=== PATIENT | female | born 1955 | race Two or more races ===

== ENCOUNTER 2017-08-30 15:16 | Inpatient (IN) | payer OTHER ==
[2017-08-30] MEDS ORDERED: PENDING SANTYL ORDER FOR WOUND CARE XX (16:00)
[2017-08-30] MEDS ORDERED: ACETAMINOPHEN 325 MG TAB PO (16:30)
[2017-08-30 16:58] LABS: ADD UMIC YES; UR ASCORBIC ACID NEGATIVE (NEGATIVE); UR BACTERIA FEW /HPF (NONE SEEN); UR BILIRUBIN (Dip) NEGATIVE (NEGATIVE); UR BLOOD (Dip) 2+ mg/dL (NEGATIVE); UR CLARITY CLEAR (CLEAR); UR COLOR YELLOW (YELLOW); UR GLUCOSE (Dip) NEGATIVE (NEGATIVE); UR KETONES (Dip) NEGATIVE (NEGATIVE); UR LEUKOCYTE ESTERASE (Dip) 1+ Leu/ul (NEGATIVE); UR NITRITE (Dip) POSITIVE (NEGATIVE); UR RBC 8 /HPF (0-5); UR SPECIFIC GRAVITY (Dip) 1.008 (1.003-1.030); UR SQUAMOUS EPITHELIAL CELL FEW /HPF (FEW); UR TOTAL PROTEIN (Dip) 1+ mg/dl (NEGATIVE); UR UROBILINOGEN (Dip) NEGATIVE (NEGATIVE); UR WBC 3 /HPF (0-5)
[2017-08-30] MEDS: HYDROCODONE/APAP (5/325) TAB PO (18:54)
[2017-08-30] MEDS: DOCUSATE SODIUM 100 MG CAP PO (20:41)
[2017-08-30] MEDS: AMLODIPINE 5 MG TAB PO ×2 (20:42→20:48)
[2017-08-30] MEDS: ZOLPIDEM 5 MG TAB PO (21:14)
[2017-08-31] MEDS: PANTOPRAZOLE (EC) 40 MG TAB PO (05:29)
[2017-08-31] MEDS: HYDROCODONE/APAP (5/325) TAB PO ×5 (08:45→21:27)
[2017-08-31] MEDS: DOCUSATE SODIUM 100 MG CAP PO ×2 (08:48→21:00)
[2017-08-31] MEDS: SENNA TAB PO (08:48)
[2017-08-31] MEDS: MAGNESIUM HYDROXIDE 30ML CUP PO (08:48)
[2017-08-31] MEDS: VALSARTAN 80 MG TAB PO (09:00)
[2017-08-31] MEDS: CHOLECALCIFEROL 1,000 UNIT TAB PO (09:00)
[2017-08-31 09:07] LABS: ADD MAN DIFF? NO
[2017-08-31 09:14] LABS: BASOPHILS % 0.2 % (0.0-2.0); EOSINOPHILS # 0.2 10^3/ul (0.0-0.5); EOSINOPHILS % 2.3 % (0.0-7.0); HEMATOCRIT 26.8 % (37.0-47.0); HEMOGLOBIN 8.4 g/dl (12.0-16.0); LYMPHOCYTES # 1.1 10^3/ul (0.8-2.9); LYMPHOCYTES % 12.7 % (15.0-51.0); MEAN CORPUSCULAR HEMOGLOBIN 27.7 pg (29.0-33.0); MEAN CORPUSCULAR HGB CONC 31.3 g/dl (32.0-37.0); MEAN CORPUSCULAR VOLUME 88.4 fl (82.0-101.0); MEAN PLATELET VOLUME 11.1 fl (7.4-10.4); MONOCYTE # 0.6 10^3/ul (0.3-0.9); MONOCYTES % 7.3 % (0.0-11.0); NEUTROPHIL # 6.4 10^3/ul (1.6-7.5); NUCLEATED RED BLOOD CELLS% 0.2 /100WBC (0.0-0.0); PLATELET COUNT 198 10^3/UL (140-415); RED BLOOD COUNT 3.03 10^6/ul (4.20-5.40); RED CELL DISTRIBUTION WIDTH 15.8 % (11.5-14.5)
[2017-08-31 09:14] LABS: WHITE BLOOD COUNT 8.3 10^3/ul (4.8-10.8)
[2017-08-31 09:43] LABS: ALANINE AMINOTRANSFERASE 26 IU/L (13-69); ALBUMIN 2.8 g/dl (3.3-4.9); ALBUMIN/GLOBULIN RATIO 0.96; ALKALINE PHOSPHATASE 77 IU/L (42-121); ANION GAP 8 (8-16); ASPARTATE AMINO TRANSFERASE 14 IU/L (15-46); BILIRUBIN,INDIRECT 0.5 mg/dl (0-1.1); BILIRUBIN,TOTAL 0.5 mg/dl (0.2-1.3); BLOOD UREA NITROGEN 9 mg/dl (7-20); CALCIUM 8.9 mg/dl (8.4-10.2); CARBON DIOXIDE 26 mmol/L (21-31); CHLORIDE 106 mmol/L (97-110); CREATININE 0.57 mg/dl (0.44-1.00); GLUCOSE 144 mg/dl (70-220); POTASSIUM 3.9 mmol/L (3.5-5.1); SODIUM 136 mmol/L (135-144); TOTAL PROTEIN 5.7 g/dl (6.1-8.1)
[2017-08-31] MEDS: AMLODIPINE 5 MG TAB PO (21:00)
[2017-08-31] MEDS: KETOCONAZOLE 2% 15 GM CR TOP (21:00)
[2017-08-31] MEDS: ZOLPIDEM 5 MG TAB PO (21:27)
[2017-08-31] MEDS: TRIAMCINOLONE ACET 0.5% 15 GM CR TOP (21:29)
[2017-09-01] MEDS: LACTULOSE 30ML CUP PO (05:38)
[2017-09-01] MEDS: PANTOPRAZOLE (EC) 40 MG TAB PO (05:38)
[2017-09-01] MEDS: HYDROCODONE/APAP (5/325) TAB PO ×5 (05:50→21:58)
[2017-09-01] MEDS: CHOLECALCIFEROL 1,000 UNIT TAB PO (08:59)
[2017-09-01] MEDS: DOCUSATE SODIUM 100 MG CAP PO ×2 (08:59→21:00)
[2017-09-01] MEDS: KETOCONAZOLE 2% 15 GM CR TOP ×2 (08:59→21:57)
[2017-09-01] MEDS: TRIAMCINOLONE ACET 0.5% 15 GM CR TOP ×2 (08:59→21:57)
[2017-09-01] MEDS: SENNA TAB PO (08:59)
[2017-09-01] MEDS: VALSARTAN 80 MG TAB PO (09:00)
[2017-09-01 10:30] LABS: IRON 27 ug/dl (35-150)
[2017-09-01 10:34] LABS: LACTATE DEHYDROGENASE 457 IU/L (313-618)
[2017-09-01 10:34] LABS: URIC ACID 5.1 mg/dl (3.1-7.9)
[2017-09-01 10:42] LABS: % IRON SATURATION 8 % SAT (22-52); TOTAL IRON BINDING CAPACITY 337 ug/dl (241-421)
[2017-09-01 11:57] LABS: ERYTHROCYTE SEDIMENTATION RATE 80 mm/Hr (0-30)
[2017-09-01] MEDS: BISACODYL 10 MG SUPP PR (13:33)
[2017-09-01 13:51] LABS: CARCINOEMBRYONIC ANTIGEN 1.3 ng/ml (0.0-5.0)
[2017-09-01 15:15] LABS: OCCULT BLOOD STOOL NEGATIVE (NEGATIVE)
[2017-09-01 15:33] LABS: FOLATE > 20.0 ng/ml (2.8-20.0)
[2017-09-01] MEDS: AMLODIPINE 5 MG TAB PO (21:00)
[2017-09-01] MEDS ORDERED: TRIMETHOPRIM/SULFAMETHOX (DS) TAB GTB (21:00)
[2017-09-01] MEDS: TRIMETHOPRIM/SULFAMETHOX (PO SYG) GTB (21:56)
[2017-09-01] MEDS: SOD FERRIC GLUC COMPLX 125 MG in SOD CHLORIDE 0.9% 100 ML IVPB (22:43)
[2017-09-02] MEDS: PANTOPRAZOLE (EC) 40 MG TAB PO (05:52)
[2017-09-02] MEDS: HYDROCODONE/APAP (5/325) TAB PO ×3 (05:52→16:05)
[2017-09-02 06:34] LABS: ADD MAN DIFF? NO
[2017-09-02 06:43] LABS: WHITE BLOOD COUNT 10.9 10^3/ul (4.8-10.8)
[2017-09-02 06:43] LABS: BASOPHILS % 0.2 % (0.0-2.0); EOSINOPHILS # 0.3 10^3/ul (0.0-0.5); EOSINOPHILS % 2.8 % (0.0-7.0); HEMATOCRIT 27.6 % (37.0-47.0); HEMOGLOBIN 8.6 g/dl (12.0-16.0); LYMPHOCYTES # 1.6 10^3/ul (0.8-2.9); LYMPHOCYTES % 14.7 % (15.0-51.0); MEAN CORPUSCULAR HEMOGLOBIN 27.5 pg (29.0-33.0); MEAN CORPUSCULAR HGB CONC 31.2 g/dl (32.0-37.0); MEAN CORPUSCULAR VOLUME 88.2 fl (82.0-101.0); MEAN PLATELET VOLUME 10.5 fl (7.4-10.4); MONOCYTE # 0.6 10^3/ul (0.3-0.9); MONOCYTES % 5.9 % (0.0-11.0); NEUTROPHIL # 8.3 10^3/ul (1.6-7.5); NEUTROPHILS % 75.8 % (39.0-77.0); NUCLEATED RED BLOOD CELLS% 0.2 /100WBC (0.0-0.0); PLATELET COUNT 263 10^3/UL (140-415); RED BLOOD COUNT 3.13 10^6/ul (4.20-5.40); RED CELL DISTRIBUTION WIDTH 16.2 % (11.5-14.5)
[2017-09-02] MEDS: VALSARTAN 80 MG TAB PO (09:00)
[2017-09-02] MEDS: TRIMETHOPRIM/SULFAMETHOX (PO SYG) GTB ×2 (09:56→20:27)
[2017-09-02] MEDS: DOCUSATE SODIUM 100 MG CAP PO ×2 (09:56→20:27)
[2017-09-02] MEDS: SENNA TAB PO (09:56)
[2017-09-02] MEDS: TRIAMCINOLONE ACET 0.5% 15 GM CR TOP ×2 (09:58→20:28)
[2017-09-02] MEDS: KETOCONAZOLE 2% 15 GM CR TOP ×2 (09:58→20:27)
[2017-09-02] MEDS: CHOLECALCIFEROL 1,000 UNIT TAB PO (09:58)
[2017-09-02] MEDS: SOD FERRIC GLUC COMPLX 125 MG in SOD CHLORIDE 0.9% 100 ML IVPB (17:34)
[2017-09-02] MEDS: AMLODIPINE 5 MG TAB PO (20:27)
[2017-09-03] MEDS: PANTOPRAZOLE (EC) 40 MG TAB PO (06:05)
[2017-09-03] MEDS: HYDROCODONE/APAP (5/325) TAB PO ×2 (06:45→09:57)
[2017-09-03] MEDS: VALSARTAN 80 MG TAB PO (08:44)
[2017-09-03] MEDS: TRIMETHOPRIM/SULFAMETHOX (PO SYG) GTB ×2 (08:49→20:33)
[2017-09-03] MEDS: CHOLECALCIFEROL 1,000 UNIT TAB PO (08:49)
[2017-09-03] MEDS: DOCUSATE SODIUM 100 MG CAP PO ×2 (08:49→20:34)
[2017-09-03] MEDS: SENNA TAB PO (08:49)
[2017-09-03] MEDS: TRIAMCINOLONE ACET 0.5% 15 GM CR TOP ×2 (08:50→20:35)
[2017-09-03] MEDS: KETOCONAZOLE 2% 15 GM CR TOP ×2 (08:50→20:35)
[2017-09-03 15:16] LABS: PROTEIN, TOTAL 5.5 g/dL (6.1-8.1)
[2017-09-03] MEDS: SOD FERRIC GLUC COMPLX 125 MG in SOD CHLORIDE 0.9% 100 ML IVPB (16:35)
[2017-09-03 16:46] LABS: HAPTOGLOBIN 408 mg/dL (43-212)
[2017-09-03 17:31] LABS: ALBUMIN 2.7 g/dL (3.8-4.8); ALPHA-1-GLOBULINS 0.6 g/dL (0.2-0.3); ALPHA-2-GLOBULINS 0.9 g/dL (0.5-0.9); BETA 2 GLOBULINS 0.3 g/dL (0.2-0.5); BETA GLOBULINS 0.5 g/dL (0.4-0.6); GAMMA GLOBULINS 0.7 g/dL (0.8-1.7)
[2017-09-03] MEDS: AMLODIPINE 5 MG TAB PO (20:34)
[2017-09-04] MEDS: PANTOPRAZOLE (EC) 40 MG TAB PO (05:38)
[2017-09-04] MEDS: TRIMETHOPRIM/SULFAMETHOX (PO SYG) GTB ×2 (07:57→20:12)
[2017-09-04] MEDS: SENNA TAB PO (07:57)
[2017-09-04] MEDS: CHOLECALCIFEROL 1,000 UNIT TAB PO (07:58)
[2017-09-04] MEDS: HYDROCODONE/APAP (10/325) TAB PO (07:58)
[2017-09-04] MEDS: DOCUSATE SODIUM 100 MG CAP PO ×2 (07:58→20:10)
[2017-09-04] MEDS: TRIAMCINOLONE ACET 0.5% 15 GM CR TOP ×2 (08:03→20:14)
[2017-09-04] MEDS: VALSARTAN 80 MG TAB PO (08:03)
[2017-09-04] MEDS: KETOCONAZOLE 2% 15 GM CR TOP ×2 (08:04→20:13)
[2017-09-04] MEDS ORDERED: HYDROCODONE/APAP (5/325) TAB PO (09:00)
[2017-09-04] MEDS: SOD FERRIC GLUC COMPLX 125 MG in SOD CHLORIDE 0.9% 100 ML IVPB (17:07)
[2017-09-04] MEDS: NEOMYC/POLYMYX/BACIT 30 GM OINT TOP (20:12)
[2017-09-04] MEDS: AMLODIPINE 5 MG TAB PO (20:15)
[2017-09-05] MEDS: PANTOPRAZOLE (EC) 40 MG TAB PO (06:10)
[2017-09-05] MEDS: HYDROCODONE/APAP (10/325) TAB PO (07:50)
[2017-09-05] MEDS: SENNA TAB PO (09:40)
[2017-09-05] MEDS: TRIMETHOPRIM/SULFAMETHOX (PO SYG) GTB ×2 (09:40→20:22)
[2017-09-05] MEDS: CHOLECALCIFEROL 1,000 UNIT TAB PO (09:40)
[2017-09-05] MEDS: NEOMYC/POLYMYX/BACIT 30 GM OINT TOP ×2 (09:40→20:23)
[2017-09-05] MEDS: VALSARTAN 80 MG TAB PO (09:41)
[2017-09-05] MEDS: DOCUSATE SODIUM 100 MG CAP PO ×2 (09:41→20:22)
[2017-09-05] MEDS: KETOCONAZOLE 2% 15 GM CR TOP (09:44)
[2017-09-05] MEDS: TRIAMCINOLONE ACET 0.5% 15 GM CR TOP (09:44)
[2017-09-05] MEDS ORDERED: KETOCONAZOLE 2% 15 GM CR TOP (15:00)
[2017-09-05] MEDS: SOD FERRIC GLUC COMPLX 125 MG in SOD CHLORIDE 0.9% 100 ML IVPB (17:05)
[2017-09-05] MEDS: AMLODIPINE 5 MG TAB PO (20:23)
[2017-09-06] MEDS: PANTOPRAZOLE (EC) 40 MG TAB PO ×2 (05:42→05:43)
[2017-09-06] MEDS: HYDROCODONE/APAP (10/325) TAB PO ×3 (08:06→18:10)
[2017-09-06] MEDS: DOCUSATE SODIUM 100 MG CAP PO ×2 (09:03→20:53)
[2017-09-06] MEDS: SENNA TAB PO (09:03)
[2017-09-06] MEDS: VALSARTAN 80 MG TAB PO (09:03)
[2017-09-06] MEDS: CHOLECALCIFEROL 1,000 UNIT TAB PO (09:04)
[2017-09-06] MEDS: TRIMETHOPRIM/SULFAMETHOX (PO SYG) GTB ×2 (09:04→20:53)
[2017-09-06] MEDS: NEOMYC/POLYMYX/BACIT 30 GM OINT TOP ×2 (09:04→20:53)
[2017-09-06] MEDS: SOD FERRIC GLUC COMPLX 125 MG in SOD CHLORIDE 0.9% 100 ML IVPB (15:26)
[2017-09-06] MEDS: AMLODIPINE 5 MG TAB PO (20:51)
[2017-09-07] MEDS: PANTOPRAZOLE (EC) 40 MG TAB PO (06:25)
[2017-09-07] MEDS: HYDROCODONE/APAP (10/325) TAB PO ×2 (06:59→13:40)
[2017-09-07 07:20] LABS: CREATININE 0.78 mg/dl (0.44-1.00)
[2017-09-07 07:20] LABS: BLOOD UREA NITROGEN 11 mg/dl (7-20)
[2017-09-07] MEDS: TRIMETHOPRIM/SULFAMETHOX (PO SYG) GTB ×2 (09:09→21:08)
[2017-09-07] MEDS: DOCUSATE SODIUM 100 MG CAP PO ×2 (09:09→21:08)
[2017-09-07] MEDS: CHOLECALCIFEROL 1,000 UNIT TAB PO (09:10)
[2017-09-07] MEDS: VALSARTAN 80 MG TAB PO (09:10)
[2017-09-07] MEDS: SENNA TAB PO (09:10)
[2017-09-07] MEDS: NEOMYC/POLYMYX/BACIT 30 GM OINT TOP ×2 (09:11→21:10)
[2017-09-07] MEDS: SOD FERRIC GLUC COMPLX 125 MG in SOD CHLORIDE 0.9% 100 ML IVPB (16:55)
[2017-09-07] MEDS: AMLODIPINE 5 MG TAB PO (21:00)
[2017-09-08] MEDS: PANTOPRAZOLE (EC) 40 MG TAB PO (06:35)
[2017-09-08] MEDS: HYDROCODONE/APAP (10/325) TAB PO ×2 (06:36→20:40)
[2017-09-08] MEDS: TRIMETHOPRIM/SULFAMETHOX (PO SYG) GTB (10:08)
[2017-09-08] MEDS: SENNA TAB PO (10:08)
[2017-09-08] MEDS: VALSARTAN 80 MG TAB PO (10:09)
[2017-09-08] MEDS: CHOLECALCIFEROL 1,000 UNIT TAB PO (10:09)
[2017-09-08] MEDS: DOCUSATE SODIUM 100 MG CAP PO ×2 (10:09→20:44)
[2017-09-08] MEDS: NEOMYC/POLYMYX/BACIT 30 GM OINT TOP ×2 (10:10→20:44)
[2017-09-08] MEDS: SOD FERRIC GLUC COMPLX 125 MG in SOD CHLORIDE 0.9% 100 ML IVPB (17:00)
[2017-09-08] MEDS: AMLODIPINE 5 MG TAB PO (20:44)
[2017-09-09] MEDS: PANTOPRAZOLE (EC) 40 MG TAB PO (06:22)
[2017-09-09] MEDS: NEOMYC/POLYMYX/BACIT 30 GM OINT TOP ×2 (09:21→21:00)
[2017-09-09] MEDS: CHOLECALCIFEROL 1,000 UNIT TAB PO (09:21)
[2017-09-09] MEDS: VALSARTAN 80 MG TAB PO (09:22)
[2017-09-09] MEDS: DOCUSATE SODIUM 100 MG CAP PO ×2 (09:23→21:00)
[2017-09-09] MEDS: SENNA TAB PO (09:23)
[2017-09-09] MEDS: HYDROCODONE/APAP (10/325) TAB PO ×2 (09:36→17:16)
[2017-09-09] MEDS: HYDROCODONE/APAP (5/325) TAB PO (11:23)
[2017-09-09] MEDS: AMLODIPINE 5 MG TAB PO (21:00)
[2017-09-10] MEDS: PANTOPRAZOLE (EC) 40 MG TAB PO (06:13)
[2017-09-10] MEDS: HYDROCODONE/APAP (10/325) TAB PO (06:14)
[2017-09-10] MEDS: HYDROCODONE/APAP (5/325) TAB PO ×2 (08:37→21:00)
[2017-09-10] MEDS: LOSARTAN 25 MG TAB PO (09:00)
[2017-09-10] MEDS: CHOLECALCIFEROL 1,000 UNIT TAB PO (09:56)
[2017-09-10] MEDS: DOCUSATE SODIUM 100 MG CAP PO ×2 (09:56→20:56)
[2017-09-10] MEDS: NEOMYC/POLYMYX/BACIT 30 GM OINT TOP ×2 (09:57→20:56)
[2017-09-10] MEDS: SENNA TAB PO (09:58)
[2017-09-10] MEDS: AMLODIPINE 5 MG TAB PO (21:00)
[2017-09-11] MEDS: PANTOPRAZOLE (EC) 40 MG TAB PO (06:18)
[2017-09-11] MEDS: NEOMYC/POLYMYX/BACIT 30 GM OINT TOP ×2 (08:15→20:37)
[2017-09-11] MEDS: LOSARTAN 25 MG TAB PO (08:15)
[2017-09-11] MEDS: CHOLECALCIFEROL 1,000 UNIT TAB PO (08:15)
[2017-09-11] MEDS: DOCUSATE SODIUM 100 MG CAP PO ×2 (08:15→20:36)
[2017-09-11] MEDS: SENNA TAB PO (08:15)
[2017-09-11] MEDS: HYDROCODONE/APAP (10/325) TAB PO ×2 (08:19→10:49)
[2017-09-11] MEDS: AMLODIPINE 5 MG TAB PO (20:37)
[2017-09-12] MEDS: HYDROCODONE/APAP (10/325) TAB PO ×3 (04:17→13:44)
[2017-09-12] MEDS: PANTOPRAZOLE (EC) 40 MG TAB PO (06:14)
[2017-09-12] MEDS: CHOLECALCIFEROL 1,000 UNIT TAB PO (08:44)
[2017-09-12] MEDS: DOCUSATE SODIUM 100 MG CAP PO ×2 (08:45→21:34)
[2017-09-12] MEDS: SENNA TAB PO (08:45)
[2017-09-12] MEDS: NEOMYC/POLYMYX/BACIT 30 GM OINT TOP ×2 (08:45→21:35)
[2017-09-12] MEDS: LOSARTAN 25 MG TAB PO (08:47)
[2017-09-12] MEDS: AMLODIPINE 5 MG TAB PO (21:00)
[2017-09-13] MEDS: HYDROCODONE/APAP (10/325) TAB PO ×3 (06:12→21:18)
[2017-09-13] MEDS: PANTOPRAZOLE (EC) 40 MG TAB PO (06:12)
[2017-09-13 06:31] LABS: ADD MAN DIFF? NO
[2017-09-13 06:34] LABS: BASOPHILS % 0.7 % (0.0-2.0); EOSINOPHILS # 0.1 10^3/ul (0.0-0.5); EOSINOPHILS % 2.1 % (0.0-7.0); HEMATOCRIT 35.1 % (37.0-47.0); HEMOGLOBIN 10.3 g/dl (12.0-16.0); LYMPHOCYTES # 1.4 10^3/ul (0.8-2.9); LYMPHOCYTES % 25.5 % (15.0-51.0); MEAN CORPUSCULAR HEMOGLOBIN 28.1 pg (29.0-33.0); MEAN CORPUSCULAR HGB CONC 29.3 g/dl (32.0-37.0); MEAN CORPUSCULAR VOLUME 95.9 fl (82.0-101.0); MEAN PLATELET VOLUME 10.4 fl (7.4-10.4); MONOCYTE # 0.3 10^3/ul (0.3-0.9); MONOCYTES % 5.1 % (0.0-11.0); NEUTROPHIL # 3.8 10^3/ul (1.6-7.5); NEUTROPHILS % 66.4 % (39.0-77.0); PLATELET COUNT 312 10^3/UL (140-415); RED BLOOD COUNT 3.66 10^6/ul (4.20-5.40); RED CELL DISTRIBUTION WIDTH 20.1 % (11.5-14.5)
[2017-09-13 06:34] LABS: WHITE BLOOD COUNT 5.7 10^3/ul (4.8-10.8)
[2017-09-13] MEDS: LOSARTAN 25 MG TAB PO (09:00)
[2017-09-13] MEDS: DOCUSATE SODIUM 100 MG CAP PO ×2 (10:11→21:17)
[2017-09-13] MEDS: CHOLECALCIFEROL 1,000 UNIT TAB PO (10:11)
[2017-09-13] MEDS: SENNA TAB PO (10:11)
[2017-09-13] MEDS: NEOMYC/POLYMYX/BACIT 30 GM OINT TOP ×2 (10:15→21:19)
[2017-09-13] MEDS: AMLODIPINE 5 MG TAB PO (21:17)
[2017-09-14] MEDS: HYDROCODONE/APAP (10/325) TAB PO ×3 (05:07→22:16)
[2017-09-14] MEDS: PANTOPRAZOLE (EC) 40 MG TAB PO (05:07)
[2017-09-14] MEDS: LOSARTAN 25 MG TAB PO (09:00)
[2017-09-14] MEDS: NEOMYC/POLYMYX/BACIT 30 GM OINT TOP ×2 (09:57→22:17)
[2017-09-14] MEDS: DOCUSATE SODIUM 100 MG CAP PO ×2 (09:57→22:17)
[2017-09-14] MEDS: CHOLECALCIFEROL 1,000 UNIT TAB PO (09:57)
[2017-09-14] MEDS: SENNA TAB PO (09:57)
[2017-09-14] MEDS: BACLOFEN 10 MG TAB PO ×2 (14:29→22:17)
[2017-09-14] MEDS: AMLODIPINE 5 MG TAB PO (22:17)
[2017-09-15] MEDS: HYDROCODONE/APAP (10/325) TAB PO ×3 (04:26→20:58)
[2017-09-15] MEDS: PANTOPRAZOLE (EC) 40 MG TAB PO (06:43)
[2017-09-15] MEDS: LOSARTAN 25 MG TAB PO (09:00)
[2017-09-15] MEDS: NEOMYC/POLYMYX/BACIT 30 GM OINT TOP (09:10)
[2017-09-15] MEDS: CHOLECALCIFEROL 1,000 UNIT TAB PO (09:11)
[2017-09-15] MEDS: DOCUSATE SODIUM 100 MG CAP PO ×2 (09:11→20:57)
[2017-09-15] MEDS: BACLOFEN 10 MG TAB PO ×2 (09:11→20:57)
[2017-09-15] MEDS: SENNA TAB PO (09:11)
[2017-09-15] MEDS ORDERED: SOD FERRIC GLUC COMPLX 125 MG in SOD CHLORIDE 0.9% 100 ML IVPB (17:00)
[2017-09-15] MEDS: AMLODIPINE 5 MG TAB PO (21:00)
[2017-09-16] MEDS: PANTOPRAZOLE (EC) 40 MG TAB PO (05:51)
[2017-09-16] MEDS: HYDROCODONE/APAP (10/325) TAB PO ×4 (05:51→21:11)
[2017-09-16] MEDS: BACLOFEN 10 MG TAB PO ×2 (09:02→21:09)
[2017-09-16] MEDS: SENNA TAB PO (09:02)
[2017-09-16] MEDS: DOCUSATE SODIUM 100 MG CAP PO ×2 (09:02→21:12)
[2017-09-16] MEDS: LOSARTAN 25 MG TAB PO (09:03)
[2017-09-16] MEDS: CHOLECALCIFEROL 1,000 UNIT TAB PO (09:03)
[2017-09-16] MEDS: AMLODIPINE 5 MG TAB PO (21:00)
[2017-09-17] MEDS: PANTOPRAZOLE (EC) 40 MG TAB PO (05:41)
[2017-09-17 07:26] LABS: ADD MAN DIFF? NO
[2017-09-17 07:35] LABS: WHITE BLOOD COUNT 4.6 10^3/ul (4.8-10.8)
[2017-09-17 07:35] LABS: BASOPHILS % 0.6 % (0.0-2.0); EOSINOPHILS # 0.1 10^3/ul (0.0-0.5); EOSINOPHILS % 1.9 % (0.0-7.0); HEMATOCRIT 36.5 % (37.0-47.0); LYMPHOCYTES # 1.1 10^3/ul (0.8-2.9); LYMPHOCYTES % 22.8 % (15.0-51.0); MEAN CORPUSCULAR HEMOGLOBIN 28.7 pg (29.0-33.0); MEAN CORPUSCULAR HGB CONC 30.1 g/dl (32.0-37.0); MEAN CORPUSCULAR VOLUME 95.3 fl (82.0-101.0); MEAN PLATELET VOLUME 10.9 fl (7.4-10.4); MONOCYTE # 0.3 10^3/ul (0.3-0.9); MONOCYTES % 7.1 % (0.0-11.0); NEUTROPHIL # 3.1 10^3/ul (1.6-7.5); NEUTROPHILS % 67.2 % (39.0-77.0); PLATELET COUNT 281 10^3/UL (140-415); RED BLOOD COUNT 3.83 10^6/ul (4.20-5.40); RED CELL DISTRIBUTION WIDTH 20.1 % (11.5-14.5)
[2017-09-17] MEDS: HYDROCODONE/APAP (10/325) TAB PO ×2 (07:52→21:12)
[2017-09-17] MEDS: BACLOFEN 10 MG TAB PO ×2 (07:56→21:11)
[2017-09-17 08:02] LABS: ALANINE AMINOTRANSFERASE 15 IU/L (13-69); ALBUMIN 3.4 g/dl (3.3-4.9); ALBUMIN/GLOBULIN RATIO 1.06; ALKALINE PHOSPHATASE 192 IU/L (42-121); ANION GAP 10 (8-16); ASPARTATE AMINO TRANSFERASE 17 IU/L (15-46); BILIRUBIN,INDIRECT 0.4 mg/dl (0-1.1); BILIRUBIN,TOTAL 0.4 mg/dl (0.2-1.3); BLOOD UREA NITROGEN 15 mg/dl (7-20); CALCIUM 9.8 mg/dl (8.4-10.2); CARBON DIOXIDE 25 mmol/L (21-31); CHLORIDE 109 mmol/L (97-110); CREATININE 0.66 mg/dl (0.44-1.00); GLUCOSE 109 mg/dl (70-220); MAGNESIUM 1.7 mg/dl (1.7-2.5); SODIUM 140 mmol/L (135-144); TOTAL PROTEIN 6.6 g/dl (6.1-8.1)
[2017-09-17 08:13] LABS: % IRON SATURATION 16 % SAT (22-52)
[2017-09-17 08:14] LABS: IRON 54 ug/dl (35-150); TOTAL IRON BINDING CAPACITY 347 ug/dl (241-421)
[2017-09-17] MEDS: LOSARTAN 25 MG TAB PO (09:00)
[2017-09-17] MEDS: CHOLECALCIFEROL 1,000 UNIT TAB PO (11:18)
[2017-09-17] MEDS: DOCUSATE SODIUM 100 MG CAP PO ×2 (11:18→21:11)
[2017-09-17] MEDS: SENNA TAB PO (11:19)
[2017-09-17] MEDS: AMLODIPINE 5 MG TAB PO (21:00)
[2017-09-18] MEDS: BISACODYL 10 MG SUPP PR (05:20)
[2017-09-18] MEDS: PANTOPRAZOLE (EC) 40 MG TAB PO (05:21)
[2017-09-18] MEDS: HYDROCODONE/APAP (10/325) TAB PO ×4 (05:22→20:56)
[2017-09-18] MEDS: LOSARTAN 25 MG TAB PO ×2 (09:00→09:28)
[2017-09-18] MEDS: CHOLECALCIFEROL 1,000 UNIT TAB PO (09:27)
[2017-09-18] MEDS: BACLOFEN 10 MG TAB PO ×2 (09:28→20:53)
[2017-09-18] MEDS: SENNA TAB PO (09:28)
[2017-09-18] MEDS: DOCUSATE SODIUM 100 MG CAP PO ×2 (09:28→20:52)
[2017-09-18] MEDS: AMLODIPINE 5 MG TAB PO (20:53)
[2017-09-19] MEDS: HYDROCODONE/APAP (10/325) TAB PO ×4 (05:03→21:06)
[2017-09-19] MEDS: PANTOPRAZOLE (EC) 40 MG TAB PO (05:04)
[2017-09-19] MEDS: LOSARTAN 25 MG TAB PO (09:24)
[2017-09-19] MEDS: SENNA TAB PO (09:24)
[2017-09-19] MEDS: BACLOFEN 10 MG TAB PO ×2 (09:24→21:04)
[2017-09-19] MEDS: CHOLECALCIFEROL 1,000 UNIT TAB PO (09:24)
[2017-09-19] MEDS: LACTULOSE 30ML CUP PO (09:24)
[2017-09-19] MEDS: DOCUSATE SODIUM 100 MG CAP PO ×2 (09:24→21:04)
[2017-09-19] MEDS: AMLODIPINE 5 MG TAB PO (21:04)
[2017-09-20] MEDS: PANTOPRAZOLE (EC) 40 MG TAB PO (06:06)
[2017-09-20] MEDS: LOSARTAN 25 MG TAB PO (08:01)
[2017-09-20] MEDS: HYDROCODONE/APAP (10/325) TAB PO ×3 (08:01→20:38)
[2017-09-20] MEDS: CHOLECALCIFEROL 1,000 UNIT TAB PO (08:01)
[2017-09-20] MEDS: DOCUSATE SODIUM 100 MG CAP PO ×2 (08:01→20:39)
[2017-09-20] MEDS: BACLOFEN 10 MG TAB PO ×2 (08:01→20:39)
[2017-09-20] MEDS: SENNA TAB PO (08:02)
[2017-09-20] MEDS: AMLODIPINE 5 MG TAB PO (20:38)
[2017-09-21] MEDS: PANTOPRAZOLE (EC) 40 MG TAB PO (06:25)
[2017-09-21] MEDS: SENNA TAB PO (09:03)
[2017-09-21] MEDS: CHOLECALCIFEROL 1,000 UNIT TAB PO (09:03)
[2017-09-21] MEDS: HYDROCODONE/APAP (10/325) TAB PO ×4 (09:03→21:16)
[2017-09-21] MEDS: BACLOFEN 10 MG TAB PO ×2 (09:04→21:16)
[2017-09-21] MEDS: LOSARTAN 25 MG TAB PO (09:04)
[2017-09-21] MEDS: DOCUSATE SODIUM 100 MG CAP PO ×2 (09:04→21:16)
[2017-09-21] MEDS: MAGNESIUM HYDROXIDE 30ML CUP PO (12:56)
[2017-09-21] MEDS: AMLODIPINE 5 MG TAB PO (21:14)
[2017-09-22] MEDS: HYDROCODONE/APAP (10/325) TAB PO ×5 (05:11→21:29)
[2017-09-22] MEDS: PANTOPRAZOLE (EC) 40 MG TAB PO (05:11)
[2017-09-22 07:18] LABS: ADD MAN DIFF? NO
[2017-09-22 07:22] LABS: EOSINOPHILS # 0.1 10^3/ul (0.0-0.5); EOSINOPHILS % 2.5 % (0.0-7.0); HEMATOCRIT 38.5 % (37.0-47.0); HEMOGLOBIN 11.8 g/dl (12.0-16.0); LYMPHOCYTES # 1.3 10^3/ul (0.8-2.9); LYMPHOCYTES % 32.9 % (15.0-51.0); MEAN CORPUSCULAR HEMOGLOBIN 29.1 pg (29.0-33.0); MEAN CORPUSCULAR HGB CONC 30.6 g/dl (32.0-37.0); MEAN CORPUSCULAR VOLUME 94.8 fl (82.0-101.0); MEAN PLATELET VOLUME 11.4 fl (7.4-10.4); MONOCYTE # 0.3 10^3/ul (0.3-0.9); MONOCYTES % 6.3 % (0.0-11.0); NEUTROPHIL # 2.3 10^3/ul (1.6-7.5); PLATELET COUNT 218 10^3/UL (140-415); RED BLOOD COUNT 4.06 10^6/ul (4.20-5.40); RED CELL DISTRIBUTION WIDTH 18.4 % (11.5-14.5)
[2017-09-22] MEDS: SENNA TAB PO (08:57)
[2017-09-22] MEDS: DOCUSATE SODIUM 100 MG CAP PO ×2 (08:57→21:28)
[2017-09-22] MEDS: BACLOFEN 10 MG TAB PO ×2 (08:57→21:28)
[2017-09-22] MEDS: LOSARTAN 25 MG TAB PO (08:57)
[2017-09-22] MEDS: CHOLECALCIFEROL 1,000 UNIT TAB PO (08:58)
[2017-09-22] MEDS: BISACODYL 10 MG SUPP PR (08:58)
[2017-09-22] MEDS: AMLODIPINE 5 MG TAB PO (21:00)
[2017-09-23] MEDS: PANTOPRAZOLE (EC) 40 MG TAB PO (05:29)
[2017-09-23] MEDS: HYDROCODONE/APAP (10/325) TAB PO ×3 (05:29→12:52)
[2017-09-23] MEDS: LOSARTAN 25 MG TAB PO (09:54)
[2017-09-23] MEDS: CHOLECALCIFEROL 1,000 UNIT TAB PO (09:54)
[2017-09-23] MEDS: DOCUSATE SODIUM 100 MG CAP PO (09:54)
[2017-09-23] MEDS: BACLOFEN 10 MG TAB PO (09:54)
[2017-09-23] MEDS: SENNA TAB PO (09:55)
== END 2017-09-23 13:00 | disposition home health service (06) | DRG 560 ==
LOC: VRC 09-20 19:00
PROC: F07Z5ZZ Bed Mobility Treatment (ICD-10-PCS; principal; 2017-08-30)
PROC: F08Z2ZZ Grooming/Personal Hygiene Treatment (ICD-10-PCS; 2017-08-30)
DX: S72.142D Displaced intertrochanteric fracture of left femur, subsequent encounter for closed fracture with routine healing (principal); D62 Acute posthemorrhagic anemia; E66.9 Obesity, unspecified; Z68.33 Body mass index [BMI] 33.0-33.9, adult; K21.9 Gastro-esophageal reflux disease without esophagitis; I11.0 Hypertensive heart disease with heart failure; I50.9 Heart failure, unspecified; E78.5 Hyperlipidemia, unspecified; K59.00 Constipation, unspecified; G47.00 Insomnia, unspecified; Z90.710 Acquired absence of both cervix and uterus; W18.30XD Fall on same level, unspecified, subsequent encounter
CPT/HCPCS: 73510; 80053; 81001; 82270; 82306; 82378; 82565; 82607; 82746; 83010; 83540; 83615; 83735; 84155; 84165; 84443; 84520; 84560; 85025; 85651; 87070; 87081; 87086; 97110; 97112; 97116; 97163; 97167; 97530; 97535; 97542